=== PATIENT | female | born 1985 | race Caucasian/White ===

== ENCOUNTER → 2020-11-02 18:26 | Outpatient (CLI) | payer BC, SELFPAY ==
[2020-11-02 19:21] LABS: Lipase 152 U/L (23-300)
== END ==
PROVIDERS: Visit Provider Family Medicine
DX: R10.9 Unspecified abdominal pain (principal)
CPT/HCPCS: 83690

== ENCOUNTER → 2023-05-04 10:13 | Outpatient (CLI) | payer OTHER, SELFPAY ==
[2023-05-04 19:16] LABS: Basophils % 0.3 % (0.1-2.0); Eosinophils % 0.5 % (0.1-12.0); Hemoglobin 13.4 g/dL (12.2-16.2); Lymphocytes # 1.7 K/mm3 (0.7-4.5); Lymphocytes % 22.7 % (10-50); Mean Corpuscular HGB Conc 31.2 g/dL (31.8-35.4); Mean Corpuscular Hemoglobin 29.9 pg (27.0-31.2); Mean Corpuscular Volume 95.9 fl (81-99); Mean Platelet Volume 8.8 fl (7.4-10.4); Monocytes # 0.4 K/mm3 (0.1-1.0); Monocytes % 5.1 % (1.7-9.3); Neutrophils # 5.4 K/mm3 (1.8-7.8); Neutrophils % 71.4 % (37.0-80.0); Platelet Count 286 K/mm3 (142-424); Red Blood Count 4.48 M/mm3 (4.20-5.40); Red Cell Distribution Width 12.8 % (11.5-17.5); White Blood Count 7.6 K/mm3 (4.8-10.8)
[2023-05-04 19:24] LABS: Alanine Aminotransferase 16 U/L (12-78); Albumin Level 4.4 g/dl (3.5-5.0); Albumin/Globulin Ratio 1.6 (1.1-1.8); Alkaline Phosphatase 70 U/L (38-126); Anion Gap 13.4 mEq/L (5-15); Aspartate Amino Transferase 22 U/L (14-36); Bilirubin,Total 0.2 mg/dl (0.2-1.3); Blood Urea Nitrogen 11 mg/dl (7-17); Calcium 9.2 mg/dl (8.4-10.2); Carbon Dioxide 27 mmol/L (22.0-30.0); Chloride 105 mmol/L (98-107); Chol/HDL Ratio 4.9 (1-3.5); Cholesterol 187 mg/dl (140-200); Estimated Glomerular Filt Rate 93 ml/min (>60); GFR (African American) 113 ML/MIN (>60); Globulin 2.7 g/dL (1.3-3.2); Glucose 103 mg/dl (74-100); HDL Cholesterol 38 mg/dl (40-60); Potassium 4.4 mmoL/L (3.5-5.1); Sodium 141 mmol/L (136-145); Total Protein,Serum 7.1 g/dl (6.3-8.2); Triglycerides 139 mg/dl (30-150); VLDL Cholesterol 28 mg/dL (0-40)
[2023-05-04 21:43] LABS: Thyroid Stimulating Hormone 2.88 uIU/mL (0.465-4.68)
== END ==
LOC: LAB.DROPOF 05-05 07:06
PROVIDERS: PCP Family Medicine; Visit Provider Family Medicine
DX: T88.7XXA Unspecified adverse effect of drug or medicament, initial encounter
CPT/HCPCS: 80053; 80061; 84443; 85025

== ENCOUNTER → 2023-08-17 18:28 | Outpatient (CLI) | payer OTHER, SELFPAY ==
[2023-08-17 18:50] LABS: Basophils # 0.1 K/mm3 (0-0.2); Basophils % 0.6 % (0.1-2.0); Eosinophils # 0.1 K/mm3 (0.0-0.4); Eosinophils % 1.5 % (0.1-12.0); Hematocrit 39.7 % (37.0-47.0); Hemoglobin 12.7 g/dL (12.2-16.2); Lymphocytes % 27.4 % (10-50); Mean Corpuscular Hemoglobin 31.4 pg (27.0-31.2); Mean Corpuscular Volume 98.1 fl (81-99); Mean Platelet Volume 9.6 fl (7.4-10.4); Monocytes # 0.3 K/mm3 (0.1-1.0); Monocytes % 4.5 % (1.7-9.3); Neutrophils # 4.8 K/mm3 (1.8-7.8); Neutrophils % 65.8 % (37.0-80.0); Platelet Count 358 K/mm3 (142-424); Red Blood Count 4.05 M/mm3 (4.20-5.40); Red Cell Distribution Width 13.6 % (11.5-17.5); White Blood Count 7.3 K/mm3 (4.8-10.8)
[2023-08-17 19:08] LABS: Alanine Aminotransferase 16 U/L (12-78); Alkaline Phosphatase 51 U/L (38-126); Aspartate Amino Transferase 29 U/L (14-36); Bilirubin,Total 0.4 mg/dl (0.2-1.3); Blood Urea Nitrogen 11 mg/dl (7-17); Calcium 8.8 mg/dl (8.4-10.2); Carbon Dioxide 26 mmol/L (22.0-30.0); Chloride 103 mmol/L (98-107); Chol/HDL Ratio 5.5 (1-3.5); Cholesterol 192 mg/dl (140-200); Estimated Glomerular Filt Rate 80 ml/min (>60); GFR (African American) 97 ML/MIN (>60); Glucose 97 mg/dl (74-100); HDL Cholesterol 35 mg/dl (40-60); Triglycerides 157 mg/dl (30-150); VLDL Cholesterol 31 mg/dL (0-40)
[2023-08-17 19:10] LABS: Albumin Level 4.4 g/dl (3.5-5.0); Albumin/Globulin Ratio 1.7 (1.1-1.8); Anion Gap 11.8 mEq/L (5-15); Globulin 2.6 g/dL (1.3-3.2); Potassium 3.8 mmoL/L (3.5-5.1); Sodium 137 mmol/L (136-145)
[2023-08-17 19:20] LABS: Direct LDL Cholesterol 119.47 mg/dL (100-129)
[2023-08-17 19:25] LABS: Free T4 (Free Thyroxine) 0.78 ng/dl (0.78-2.19)
[2023-08-17 19:39] LABS: Thyroid Stimulating Hormone 2.07 uIU/mL (0.465-4.68)
[2023-08-20 00:09] LABS: Lithium (Eskalith(R)) 0.1 mmol/L (0.5-1.2)
== END ==
LOC: LAB.DROPOF 18:30
PROVIDERS: PCP Nurse Practitioner Acute Care; Visit Provider Nurse Practitioner Acute Care
DX: F31.81 Bipolar II disorder (principal); F41.0 Panic disorder [episodic paroxysmal anxiety]; F41.1 Generalized anxiety disorder
CPT/HCPCS: 80053; 80061; 80178; 83036; 84439; 84443; 85025

== ENCOUNTER 2023-11-09 20:04 | Outpatient (CLI) | payer OTHER, SELFPAY ==
[2023-11-09 19:11] LABS: Alanine Aminotransferase 18 U/L (12-78); Albumin Level 4.5 g/dl (3.5-5.0); Albumin/Globulin Ratio 1.9 (1.1-1.8); Alkaline Phosphatase 60 U/L (38-126); Anion Gap 10.8 mEq/L (5-15); Aspartate Amino Transferase 21 U/L (14-36); Bilirubin,Total 0.3 mg/dl (0.2-1.3); Blood Urea Nitrogen 14 mg/dl (7-17); Calcium 9.5 mg/dl (8.4-10.2); Carbon Dioxide 26 mmol/L (22.0-30.0); Chloride 107 mmol/L (98-107); Estimated Glomerular Filt Rate 55 ml/min (>60); GFR (African American) 67 ML/MIN (>60); Globulin 2.4 g/dL (1.3-3.2); Glucose 111 mg/dl (74-100); Potassium 3.8 mmoL/L (3.5-5.1); Sodium 140 mmol/L (136-145); Total Protein,Serum 6.9 g/dl (6.3-8.2)
[2023-11-09 19:27] LABS: Free T4 (Free Thyroxine) 0.85 ng/dl (0.78-2.19)
[2023-11-09 19:43] LABS: Thyroid Stimulating Hormone 4.33 uIU/mL (0.465-4.68)
[2023-11-11 05:21] LABS: Lithium (Eskalith(R)) 0.4 mmol/L (0.5-1.2)
== END 2023-11-09 23:59 ==
LOC: LAB.DROPOF 20:04
PROVIDERS: PCP Nurse Practitioner Acute Care; Visit Provider Nurse Practitioner Acute Care
DX: F31.81 Bipolar II disorder (principal)
CPT/HCPCS: 80053; 80178; 84439; 84443

== ENCOUNTER 2024-12-13 12:50 | Outpatient (CLI) | payer OTHER, SELFPAY ==
[2024-12-13 18:51] LABS: Basophils # 0.1 K/mm3 (0-0.2); Basophils % 0.6 % (0.1-2.0); Eosinophils # 0.1 K/mm3 (0.0-0.4); Eosinophils % 1.5 % (0.1-12.0); Hematocrit 39.3 % (37.0-47.0); Hemoglobin 12.4 g/dL (12.2-16.2); Lymphocytes # 2.4 K/mm3 (0.7-4.5); Lymphocytes % 24.7 % (10-50); Mean Corpuscular HGB Conc 31.6 g/dL (31.8-35.4); Mean Corpuscular Hemoglobin 31.2 pg (27.0-31.2); Mean Platelet Volume 10.2 fl (7.4-10.4); Monocytes # 0.6 K/mm3 (0.1-1.0); Monocytes % 6.1 % (1.7-9.3); Neutrophils # 6.4 K/mm3 (1.8-7.8); Neutrophils % 66.7 % (37.0-80.0); Platelet Count 317 K/mm3 (142-424); Red Blood Count 3.97 M/mm3 (4.20-5.40); Red Cell Distribution Width 12.8 % (11.5-17.5); White Blood Count 9.6 K/mm3 (4.8-10.8)
[2024-12-13 19:39] LABS: Alanine Aminotransferase 12 U/L (12-78); Albumin Level 4.5 g/dl (3.5-5.0); Albumin/Globulin Ratio 2.1 (1.1-1.8); Alkaline Phosphatase 45 U/L (38-126); Anion Gap 10.1 mEq/L (5-15); Aspartate Amino Transferase 19 U/L (14-36); Bilirubin,Total 0.5 mg/dl (0.2-1.3); Blood Urea Nitrogen 7 mg/dl (7-17); Calcium 10.7 mg/dl (8.4-10.2); Carbon Dioxide 29 mmol/L (22.0-30.0); Chloride 103 mmol/L (98-107); Estimated Glomerular Filt Rate 69 ml/min (>60); GFR (African American) 83 ML/MIN (>60); Globulin 2.1 g/dL (1.3-3.2); Glucose 111 mg/dl (74-100); Potassium 4.1 mmoL/L (3.5-5.1); Sodium 138 mmol/L (136-145); Total Protein,Serum 6.6 g/dl (6.3-8.2)
[2024-12-13 20:07] LABS: Thyroid Stimulating Hormone 3.29 uIU/mL (0.465-4.68)
[2024-12-13 20:26] LABS: Vitamin B12 287 pg/mL (239-931)
[2024-12-14] LABS: Hemoglobin A1C 4.9 % (4.0-6.0)
== END 2024-12-13 23:59 | disposition home or self-care (01) ==
LOC: LAB.DROPOF 12-14 13:21
PROVIDERS: PCP Nurse Practitioner; Visit Provider Nurse Practitioner
DX: R55 Syncope and collapse (principal); R42 Dizziness and giddiness
CPT/HCPCS: 80053; 82607; 83036; 84443; 85025; 87086

== ENCOUNTER 2025-05-08 11:52 | Outpatient (CLI) | payer OTHER, SELFPAY ==
--- OUTSIDE RECORDS SUMMARY | 2025-04-19 13:53 | XMS_ITS | Encounter Summary ---
Author Organization [facility] [address] Care Team Providers Care Pharmacy Affairs Assistant Name Role Phone Colt Man MD Primary Care Provider [phone] Reason for Visit * Reason Comments Emesis Loss of Consciousness States vomiting ye sterday today passed out in shower Encounter Details Date Type Department Care Team (Late st Contact Info) Description 04/19/2025 1:53 PM EDT - 04/19/2025 4:41 [place] [address] Gen Bland MD [address] [place] [id number] Syncope and collapse (Primary Dx); Nausea and vomiting, unspecified vomiting type; Nonintractable headache, unspecified chronicity pattern, unspecified headache type; Pericardial cyst; Lung granuloma (HCC); Periumbilical hernia Discharge Disposition: Home or Self Care Social History Tobacco Use Types Packs/Day Years Used Date Smoking Tobacco: Former Cigarettes 1 10 Passive Smoke Exposure: Past Smokeless Tobacco: Never Comments:Quit smoking 12/2021 Alcohol Use Standard Drinks/Week Comments Not Currently 0 (1 standard drink = 0.6 oz pur e alcohol) Sexually Active Control Partners Comments Yes Male Comments No Sex and Gender Information Value Date Recorded Sex Assigned at Not on file Legal Sex Female 9:02 PM EDT Gender Identity Not on file Sexual Orientation Not on file documented as of this encounter Last Filed Vital Signs Vital Sign Reading Time Taken Comments Blood Pressure 93/48 04/19/2025 4:30 PM EDT Pulse 83 04/19/2025 4:30 PM EDT Temperature 36.7 C (98.1 F) 04/19/2025 12:51 PM EDT Respiratory Rate 20 04/19/2025 4:30 PM EDT Oxygen Saturation 100% 04/19/2025 3:30 PM EDT Inhaled Oxygen Concentration - - Weight 65.9 kg (145 lb 4.8 oz) 04/19/2025 12:51 PM EDT Height - - Body Mass Index 23.45 12/10/2024 9:21 PM EDT documented in this encounter Functional Status * Suicide Severity Rating Answer Date of Assessment Author No Risk 04/19/2025 12:53 PM EDT Jose Naik RN * Drifting Suicide Severity Rating Scale (Q shift for moderate and high) Question Answer Date of Assessment Author 1. In the past month, have you wished you were or wished you could go to sleep and not wake up? 0 04/19/2025 12:53 PM EDT Lj Welch RN 2. In the past month, have you actually had any thoughts of killing yourself? (If no, skip to question 6) 0 04/19/2025 12:53 PM EDT Lj Welch RN 6. Have you ever done anything, started to do anything, or prepared to do anything to end your life? 0 04/19/2025 12:[address], RN documented as of this encounter Discharge Instructions * Discharge Instructions* Gen Bland MD - 04/19/2025 4:01 PM EDT Take the Reglan as needed for nausea and vomiting. Advance diet as tolerated. Follow-up with cardiology and your family doctor. Return if worse. * Attachments The following attachments cannot be sent through Care Everywhere. * Syncope (fainting) ??? Discharge instructions (Chinese) * Nausea and vomiting in adults (Chinese) documented in this encounter Medications at Time of Discharge aspirin/acetamin ophen/caffeine (EXCEDRIN EXTRA STRENGTH ORAL) Take by mouth as needed for Other. CAPLYTA 42 mg Oral Capsule Take 1 Capsule by mouth daily. 11/26/2024 cetirizine (ZYRTEC) 10 mg Oral Tablet Take 10 mg by mouth daily as needed for Allergies. Alternates with loratadine dimenhyDRINATE (DRAMAMINE) 50 mg tabletIndication s:nausea Take 50 mg by mouth as needed for Breakthrough Nausea/Vomiting. Indications: nausea escitalopram oxalate (LEXAPRO) 5 mg Oral Tablet 01/13/2024 ibuprofen (ADVIL;MOTRIN) 800 mg Oral Tablet Take 1 Tablet by mouth every 6 hours as needed. 30 Tablet 03/16/2024 9:38 AM EDT 03/16/2024 lamoTRIgine (LAMICTAL) 150 mg Oral Tablet Take 150 mg by mouth daily. lithium 300 mg Oral Capsule Take 300 mg by mouth daily. metoclopramide HCl (REGLAN) 10 mg Oral Tablet Take 1 Tablet by mouth every 8 hours as needed for Nausea for up to 30 days. 20 Tablet 04/19/2025 4:31 PM EDT 04/19/2025 WEGOVY 1 mg/0.5 mL SubQ Pen Injector Subcutaneous (Inject under the skin) 1 mg once a week. saturdays11/09/2023 documented as of this encounter Ordered Prescriptions Prescription Sig Dispense Quantity Refills Last Filled Start Date End Date metoclopramide HCl (REGLAN) 10 mg Oral Tablet Take 1 Tablet by mouth every 8 hours as needed for Nausea for up to 30 days. 20 Tablet 04/19/2025 4:31 PM EDT 04/19/2025 05/19/2025 documented in this encounter Discharge Disposition Disposition Code Departure Means Destination Comment s Home or Self Usp documented in this encounter Progress Notes * Brittany Jackson CPhT - 04/19/2025 4:40 PM EDT Discharge Medication Delivery Service [employer]MD integration technician has delivered the following medications for Jim Rowley: Rx#[id number]:METOCLOPRAMIDE 10 MG TABLET-10 mg EVERY 8 HOURS PRN Date/Time of Delivery: 04/19/2025 4:40 PM Delivered to: the patient in bed 25. Please contact [employer]MD integration technician with any questions. Thanks! Brittany Jackson CPhT documented in this encounter ED Notes * Gen Bland MD - 04/19/2025 12:38 PM EDT Chief Complaint Patient presents with Emesis Loss of Consciousness States vomiting yesterday today passed out in shower Patient is a 39-year-old female with a history of gallbladder disease, umbilical hernia, stress urinary incontinence, uterine ablation, presents here with vomiting and syncope. Patient tells me she has felt lightheaded. On further discussion she denies any vertigo. Her main complaint is that of just some intermittent headaches and feeling weird in her head she tells me mostly frontal headache. Tells me she has had several syncopal episodes over the last 24 hours where as her vision gets narrow and she passes out denies head injury. Denies neck pain. Tells me she is continue to be nauseated. Vomited yesterday. Nausea today with minimal oral intake. She also has complaints of chest soreness. She denies chest pressure she denies pleuritic pain but is tells me her chest feels sore. Some abdominal tenderness at times with the nausea and vomiting. History provided by: Patient and medical records change management lead used: No Emesis Severity: Moderate Duration: 24 hours Timing: Intermittent Quality: Undigested food Associated symptoms: headaches Associated symptoms: no abdominal pain, no chills, no cough, no diarrhea and no fever Loss of Consciousness Associated symptoms: chest pain, headaches, nausea and vomiting Associated symptoms: no fever, no palpitations and no shortness of breath Patient History Allergies Allergen Reactions Phenergan [Promethazine] Nausea And Vomiting Zofran [Ondansetron Hcl] Nausea And Vomiting Vicodin [Hydrocodone-Acetaminophen] Nausea And Vomiting Home Medications: Prior to Admission medications Medication Sig Start Date End Date Last Dose Authorizing Provider aspirin/acetaminophen/caffeine (EXCEDRIN EXTRA STRENGTH ORAL) Take by mouth as needed for Other. Provider, Historical CAPLYTA 42 mg Oral Capsule Take 1 Capsule by mouth daily. 11/26/24 Provider, Historical cetirizine (ZYRTEC) 10 mg Oral Tablet Take 10 mg by mouth daily as needed for Allergies. Alternateswith loratadine Provider, Historical dimenhyDRINATE (DRAMAMINE) 50 mg tablet Take 50 mg by mouth as needed for Breakthrough Nausea/Vomiting. Indications: nausea Provider, Historical escitalopram oxalate (LEXAPRO) 5 mg Oral Tablet 01/13/24 Provider, Historical ibuprofen (ADVIL;MOTRIN) 800 mg Oral Tablet Take 1 Tablet by mouth every 6 hours as needed. 03/16/24Ave Díaz MD lamoTRIgine (LAMICTAL) 150 mg Oral Tablet Take 150 mg by mouth daily. Provider, Historical lithium 300 mg Oral Capsule Take 300 mg by mouth daily. Provider, Historical WEGOVY 1 mg/0.5 mL SubQ Pen Injector Subcutaneous (Inject under the skin) 1 mg once a week. saturdays11/09/23 Provider, Historical Past Medical History: Past Medical History: Diagnosis Date Depression Gallbladder disease Nausea Other disorders of kidney and ureter has had urethra stretched Post-operative nausea and vomiting unsure if anesthesia, but for sure with pain meds- uses scop patch Umbilical hernia 07/23/2012 Urinary incontinence costa Wears glasses Social History: reports that she has quit smoking. Her smoking use included cigarettes. She has a 10 pack-year smoking history. She has been exposed to tobacco smoke. She has never used smokeless tobacco. She reports that she does not currently use alcohol. She reports being sexually active and hashad partner(s) who are male. She reports that she does not use drugs. E-Cigarettes (such as Vapes or Juul) E-Cigarette Use Never User Family History: Family History Problem Relation Age of Onset No Known Problems Mother No Known Problems Father No Known Problems Sister No Known Problems Brother No Known Problems Maternal Aunt No Known Problems Maternal Uncle No Known Problems Paternal Aunt No Known Problems Paternal Uncle No Known Problems Maternal Grandmother No Known Problems Maternal Grandfather No Known Problems Paternal Grandmother No Known Problems Paternal Grandfather No Known Problems Other Anesth Problems Neg Hx Rheum Arthritis Neg Hx Osteoarthritis Neg Hx Asthma Neg Hx Breast Cancer Neg Hx Cancer Neg Hx Diabetes Neg Hx Heart Failure Neg Hx High Cholesterol Neg Hx Hypertension Neg Hx Migraines Neg Hx Ovarian Cancer Neg Hx Rashes/Skin Problems Neg Hx Seizures Neg Hx Stroke Neg Hx Thyroid Disease Neg Hx Sickle Cell Anemia Neg Hx Heart Defect Neg Hx Down Syndrome Neg Hx Mental Retardation Neg Hx Clotting Disorder Neg Hx Bleeding Prob Neg Hx Cystic Fibrosis Neg Hx Chorea Neg Hx PKU Neg Hx Defects Neg Hx Surgical History: Past Surgical History: Procedure Laterality Date BLADDER SURGERY 2006 urethra stretched CHOLECYSTECTOMY 02/06/2012 DAVINCI ROBOTIC LAPAROSCOPIC CHOLECYSTECTOMY , UMBILICAL HERNIA REPAIR; Surgeon: Leonides Youssef MD; Location: [facility]; Service: Thoracic ENDOMETRIAL ABLATION N/A 03/16/2024 ENDOMETRIAL ABLATION WITH NOVASURE DILATION AND CURETTAGE, HYSTEROSCOPY; Surgeon: Ave Díaz MD; Location: [facility]; Service: Gynecology UMBILICAL HERNIA REPAIR 02/06/2012 Surgeon: Leonides Youssef MD; Location: [facility]; Service: Thoracic UMBILICAL HERNIA REPAIR 08/06/2012 UMBILICAL HERNIA REPAIR ; Surgeon: Leonides Youssef MD; Location: [facility]; Service: Thoracic UMBILICAL HERNIA REPAIR N/A 12/13/2020 Excision of stitch granuloma and scar tissue.; Surgeon: Lin Patterson MD; Location: [facility];Service: General VENTRAL HERNIA REPAIR N/A 01/10/2020 Open repair incisional hernia with Mesh ; Surgeon: Leonides Youssef MD; Location: [facility]; Service: General Review of Systems Review of Systems Constitutional: Negative for chills and fever. HENT: Negative. Eyes: Negative. Respiratory: Negative for cough and shortness of breath. Cardiovascular: Positive for chest pain and syncope. Negative for palpitations and leg swelling. Gastrointestinal: Positive for nausea and vomiting. Negative for abdominal pain and diarrhea. Genitourinary: Negative for dysuria and frequency. Musculoskeletal: Negative. Skin: Negative for rash. Neurological: Positive for syncope, light-headedness and headaches. Psychiatric/Behavioral: Negative. All other systems reviewed and are negative. Physical Exam Blood pressure 101/50, pulse 81, temperature 98.1 ??F (36.7 ??C), temperature source Oral, resp. rate 13, weight 145 lb 4.8 oz (65.9 kg), SpO2 100%, not currently . Physical Exam Vitals and nursing note reviewed. Constitutional: General: She is not in acute distress. Appearance: She is well-developed. Eyes: Conjunctiva/sclera: Conjunctivae normal. Pupils: Pupils are equal, round, and reactive to light. Cardiovascular: Rate and Rhythm: Normal rate and regular rhythm. Heart sounds: No murmur heard. No friction rub. No gallop. Pulmonary: Effort: Pulmonary effort is normal. Breath sounds: Normal breath sounds. Abdominal: General: Bowel sounds are normal. There is no distension. Palpations: Abdomen is soft. Tenderness: There is abdominal tenderness. Comments: Minimal epigastric tenderness. Musculoskeletal: Cervical back: Normal range of motion and neck supple. Lymphadenopathy: Cervical: No cervical adenopathy. Skin: General: Skin is warm and dry. Findings: No rash. Neurological: Mental Status: She is alert and oriented to person, place, and time. Comments: Patient is alert oriented x 4. Grossly moving all extremities. No pronator drift. Patientwas laid flat and sat up in a modified Hallpike maneuver. No nystagmus no vertigo. Just describes afrontal headache. Procedures Radiology/EKG/Labs: EKG Interpretation Interpreted by me Rhythm: normal sinus Rate: normal [place]: normal Ectopy: none Conduction: normal ST Segments: no acute change T Waves: no acute change Q Waves: none Clinical Impression: no acute changes and normal SCANNED EKG Final Result CT ANGIOGRAM CHEST ABDOMEN PELVIS W CONTRAST Final Result 1. No acute abnormality including aortic dissection. 2. Right anterior cardiophrenic 5 cm probable pericardial cyst. 3. Small volume pelvic free fluid. - CT HEAD WO CONTRAST Final Result No acute intracranial abnormality. - Note: Radiology results need to be interpreted within a comprehensive clinical context. If you have questions about the radiology report, please contact the office of the ordering clinician. CT ANGIOGRAM HEAD AND NECK W CONTRAST Final Result No large vessel occlusion, dissection, or aneurysm identified. - Note: Radiology results need to be interpreted within a comprehensive clinical context. If you have questions about the radiology report, please contact the office of the ordering clinician. NASCET criteria used for estimates of stenosis. EK EKG [address] [facility] Test Date: 2025-04-19 Pat Name: JIM ROWLEY Department: [facility] Room: Gender: Female Doorperson: Jesus : 1985 Requested By: [facility] Order Number: [id number] Reading MD: Janice Llanes MD Measurements Intervals [place] Rate: 71 P: 56 [place]: 198 QRS: 52 QRSD: 92 T: 55 QT: 374 QTc: 407 Interpretive Statements SINUS RHYTHM Electronically Signed On 04-19-2025 15:51:50 EDT by Janice Llanes MD Labs Reviewed URINALYSIS REFLEX - Abnormal Result Value UA Color Light Yellow UA Appear Clear UA Glucose Negative UA Ketones Negative UA Blood Negative UA pH 6.0 UA Protein Negative UA Urobilinogen Normal UA Bili Negative UA Nitrite Negative UA Leuk Est 1+ (25 Rolando/mcl) (*) UA Spec Grav 1.024 UA WBC 4 UA RBC <1 UA Squam Epi 4+ UA Mucus Trace UA Bacteria Trace (*) BASIC METABOLIC PANEL - Normal Sodium 138 Potassium 3.8 Chloride 101 Total CO2 26 Anion Gap 11 Calcium 10.0 Glucose Lvl 95 BUN 14 Creatinine 1.09 eGFR (CKD-EPIcr 2020) 65 HEPATIC FUNCTION PANEL - Normal Total Protein 6.9 Albumin 4.2 Bili Direct <0.2 Bili Total 0.5 AST 12 ALT <5 Alk Phos 54 LIPASE LEVEL - Normal Lipase Lvl 56 TROPONIN-T HIGH SENSITIVITY BASELINE W/ REFLEX - Normal [id number] <6 Narrative: Ingestion of greg doses of biotin (>5 mg/day) taken within 8 hours of drawing blood sample can interfere with this immunoassay test. LACTIC ACID - Normal Lactic Acid 0.7 HUMAN CHORIONIC GONADOTROPIN QUANTITATIVE - Normal Hcg Quant <1 Narrative: Female (non-): 0-4.9 mIU/mL Female (postmenopausal): 0-8.1 mIU/mL Indeterminate values for (e.g., 5-25 mIU/mL) may be confirmed with a repeat test in 48-72hours. Values in should double every 2-3 days for the first six weeks. Ingestion of greg doses of biotin (>5 mg/day) taken within 8 hours of drawing blood sample can interfere with this immunoassay test. CBC WITH DIFF WBC 8.0 RBC 3.96 Hgb 12.1 Hct 37.5 MCV 94.7 MCH 30.6 MCHC 32.3 RDW 12.4 Platelet 262 MPV 9.2 Neut Percent 62.8 Imm Gran% 0.3 Lymph Percent 29.4 Steele Percent 5.8 Eos Percent 1.4 Baso Percent 0.3 Neut # 5.0 IMMGRAN# 0.0 Lymph # 2.3 Steele # 0.5 Eos# 0.1 Baso # 0.0 UA W/REFLEX TO CULTURE Narrative: The following orders were created for panel order UA W/REFLEX TO CULTURE. Procedure Abnormality Status --------- ------ URINALYSIS REFLEX[[id number]] Abnormal Final result EXTRA REYES URINE CX[[id number]] Final result Please view results for these tests on the individual orders. ED Course: Appropriate laboratory and radiology studies reviewed Patient presents with multiple issues. She has complaints of feeling strange in her head but deniesany vertigo. Describes a frontal headache. Workup is unremarkable. Did give her a liter of IV fluids Reglan Benadryl. On recheck seems to be improved. No obvious neurological deficits. CT angiogram head and neck no evidence of occlusion. Patient also had complaints of chest pain. Nausea vomiting. CT angiogram chest abdomen pelvis unremarkable except for incidental findings of a pericardial cyst. I did message cardiology on-call. At this point patient will be discharged home. I do not feel she has acute coronary syndrome. As far as her pericardial cyst is small. Cardiology agreeable to following up on the patient and discussing further need for 2D echo. Patient discharged home on Reglan for nausea concerning her multiple allergies. She is agreeable to this plan. Patient also had several incidental findings such as a lung granuloma and a periumbilical hernia. No evidence of bowel obstruction she is updated. 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 Radiology: ordered. Risk Prescription drug management. Condition at Discharge/Transfer from Department: Stable This chart was completed using voice recognition technology and may contain unintended errors Gen Bland MD 04/21/25 [id number] documented in this encounter Plan of Treatment Not on file documented as of this encounter Procedures Procedure Name Priority Date/Time Associated Diagnosis Comments SCANNED EKG 04/20/2025 12:[address] ANGIOGRAM CHEST ABDOMEN PELVIS W CONTRAST STAT 04/19/2025 3:[address] ANGIOGRAM HEAD AND NECK W CONTRAST STAT 04/19/2025 2:[address] HEAD WO CONTRAST STAT 04/19/2025 2 :58 PM EDT TROPONIN-T HIGH SENSITIVITY BASELINE W/ REFLEX STAT 04/19/2025 2:15 PM EDT CBC WITH DIFF STAT 04/19/2025 2:15 PM EDT HUMAN CHORIONIC GONADOTROPIN QUANTITATIVE STAT 04/19/2025 2:15 PM EDT LIPASE LEVEL STAT 04/19/2025 2:15 PM EDT LACTIC ACID STAT 04/19/2025 2:15 PM EDT HEPATIC FUNCTION PANEL STAT 04/19/2025 2:15 PM EDT BASIC METABOLIC PANEL STAT 04/19/2025 2:15 PM EDT URINALYSIS REFLEX STAT 04/19/2025 2:1 4 PM EDT UA W/REFLEX TO CULTURE STAT 04/19/2025 2:14 PM EDT EXTRA REYES URINE CX STAT 04/19/2025 2 :14 PM EDT URINE CULTURE (NO STAIN) STAT 04/19/2025 2:14 PM EDT EK EKG 12 LEAD STAT 04/19/2025 12:40 PM EDT documented in this encounter Results * SCANNED EKG (04/20/2025 12:22 PM EDT) Anatomical Region Laterality Modality Other 04/20/2025 12:2 2 PM EDT us Unknown Provider IMG ECG ORDERABLES Final Result * CT ANGIOGRAM CHEST ABDOMEN PELVIS W CONTRAST (04/19/2025 3:02 PM EDT) Anatomical Region Laterality Modality Abdomen, Pelvis, Chest Computed Tomography 04/19/2025 3:02 PM EDT Impressions 04/19/2025 3:30 PM EDT 1. No acute abnormality including aortic dissection. 2. Right anterior cardiophrenic 5 cm probable pericardial cyst. 3. Small volume pelvic free fluid. - Narrative 04/19/2025 3:[address] ANGIOGRAM CHEST ABDOMEN PELVIS W CONTRAST 04/19/2025 3:02 PM CLINICAL HISTORY: -Chest Pain -Chest pain syncope. COMPARISON: None. PROCEDURE COMMENTS: Multidetector CT angiography of the region of interest. Isovue 370 IV contrast given as recorded in EPIC. Multiplanar reconstructions generated and reviewed, including 3D MIPS. Dose 1 : CT DLP Total : 2779.75 mGycm DLP Spiral Max : 1311.83 mGycm Maximum CTDI Vol : 54.2 mGy FINDINGS: Chest CT: Postcontrast CTA demonstrates normal thoracic aortic caliber without dissection. The main pulmonary arteries are patent. Normal heart size. No coronary arterial calcifications or pericardial effusion. Mediastinum and gibson are notable for right anterior cardiophrenic 5 cm probable pericardial cyst. Peripheral left upper lobe calcified granulomas. Minimal bibasilar dependent subsegmental atelectasis. No pleural effusion or pneumothorax. Normal chest wall. Grossly intact rib cage. Abdomen and pelvis CT: Normal abdominal aortic caliber without dissection. Patent visceral branches of the abdominal aorta. Grossly unremarkable liver, spleen, gallbladder, pancreas, adrenals, and kidneys except for small splenic hemangioma. The visualized bowel within normal limits. Small volume pelvic free fluid. No mass or adenopathy. The visualized bones are grossly intact. Small periumbilical hernia. Procedure Note Jason Toledo MD - 04/19/2025 CT ANGIOGRAM CHEST ABDOMEN PELVIS W CONTRAST 04/19/2025 3:02 PM CLINICAL HISTORY: -Chest Pain -Chest pain syncope. COMPARISON: None. PROCEDURE COMMENTS: Multidetector CT angiography of the region ofinterest. Isovue 370 IV contrast given as recorded in EPIC. Multiplanarreconstructions generated and reviewed, including 3D MIPS. Dose 1 : CT DLP Total : 2779.75 mGycm DLP Spiral Max : 1311.83 mGycm Maximum CTDI Vol : 54.2 mGy FINDINGS: Chest CT: Postcontrast CTA demonstrates normal thoracic aortic caliber withoutdissection. The main pulmonary arteries are patent. Normal heart size. No coronaryarterial calcifications or pericardial effusion. Mediastinum and gibson are notable for right anterior cardiophrenic 5 cmprobable pericardial cyst. Peripheral left upper lobe calcified granulomas. Minimal bibasilardependent subsegmental atelectasis. No pleural effusion or pneumothorax. Normal chest wall. Grossly intact rib cage. Abdomen and pelvis CT: Normal abdominal aortic caliber without dissection. Patent visceralbranches of the abdominal aorta. Grossly unremarkable liver, spleen, gallbladder, pancreas, adrenals, andkidneys except for small splenic hemangioma. The visualized bowel within normal limits. Small volume pelvic free fluid. No mass or adenopathy. The visualized bones are grossly intact. Small periumbilical hernia. IMPRESSION: 1. No acute abnormality including aortic dissection. 2. Right anterior cardiophrenic 5 cm probable pericardial cyst. 3. Small volume pelvic free fluid. - Gne Bland MD IMG CT ORDERABLES Final Result * CT ANGIOGRAM HEAD AND NECK W CONTRAST (04/19/2025 2:58 PM EDT) Anatomical Region Laterality Modality Head Computed Tomogra phy 04/19/2025 2:58 PM EDT Impressions 04/19/2025 3:11 PM EDT No large vessel occlusion, dissection, or aneurysm identified. - Note: Radiology results need to be interpreted within a comprehensive clinical context. If you have questions about the radiology report, please contact the office of the ordering clinician. NASCET criteria used for estimates of stenosis. Narrative 04/19/2025 3:11 PM EDT CTA HEAD AND NECK WITH CONTRAST, 04/19/2025 2:58 PM CLINICAL HISTORY: -Frontal headache near syncope questionable vertigo. COMPARISON: None. PROCEDURE COMMENTS: Isovue 370 IV contrast given as recorded in EPIC. Subsequently, multi-detector helical scanning was performed through the head and neck and multiplanar reconstructions generated per protocol. Review included 3D MIP reconstructions. Dose 1 : CT DLP Total : 2779.75 mGycm DLP Spiral Max : 1311.83 mGycm Maximum CTDI Vol : 54.2 mGy FINDINGS: CTA NECK: ARCH: Visible aortic arch patent shows no gross aneurysm or dissection. RIGHT CAROTID SYSTEM: Common carotid artery and cervical segments of the internal carotid artery are patent without evidence of flow-limiting stenosis or dissection. LEFT CAROTID SYSTEM: Common carotid artery and cervical segments of the internal carotid artery are patent without evidence of flow-limiting stenosis or dissection. VERTEBRAL ARTERIES: Vertebral arteries are grossly patent without flow-limiting stenosis or dissection. CTA HEAD: No occlusion or flow limiting stenosis of the central intracranial circulation. No aneurysm. OTHER: Visualized lung apices are clear. No neck mass or suspicious lymph nodes. Visible skeleton intact. Procedure Note Robe Macdonald MD - 04/19/2025 CTA HEAD AND NECK WITH CONTRAST, 04/19/2025 2:58 PM CLINICAL HISTORY: -Frontal headache near syncope questionable vertigo. COMPARISON: None. PROCEDURE COMMENTS: Isovue 370 IV contrast given as recorded in EPIC. Subsequently, multi-detector helical scanning was performed through thehead and neck and multiplanar reconstructions generated per protocol. Review included 3D MIP reconstructions. Dose 1 : CT DLP Total : 2779.75 mGycm DLP Spiral Max : 1311.83 mGycm Maximum CTDI Vol : 54.2 mGy FINDINGS: CTA NECK: ARCH: Visible aortic arch patent shows no gross aneurysm or dissection. RIGHT CAROTID SYSTEM: Common carotid artery and cervical segments of the internal carotid artery are patent without evidence of flow-limitingstenosis or dissection. LEFT CAROTID SYSTEM: Common carotid artery and cervical segments of theinternal carotid artery are patent without evidence of flow-limiting stenosis or dissection. VERTEBRAL ARTERIES: Vertebral arteries are grossly patent withoutflow-limiting stenosis or dissection. CTA HEAD: No occlusion or flow limiting stenosis of the centralintracranial circulation. No aneurysm. OTHER: Visualized lung apices are clear. No neck mass or suspicious lymphnodes. Visible skeleton intact. IMPRESSION: No large vessel occlusion, dissection, or aneurysm identified. - Note: Radiology results need to be interpreted within a comprehensiveclinical context. If you have questions about the radiology report, please contactthe office of the ordering clinician. NASCET criteria used for estimates of stenosis. Gen Bland MD [facility] [place] ORDERABLES Final Result * CT HEAD WO CONTRAST (04/19/2025 2:58 PM EDT) Anatomical Region Laterality Modality Head Computed Tomogra phy 04/19/2025 2:58 PM EDT Impressions 04/19/2025 3:21 PM EDT No acute intracranial abnormality. - Note: Radiology results need to be interpreted within a comprehensive clinical context. If you have questions about the radiology report, please contact the office of the ordering clinician. Narrative 04/19/2025 3:[address] HEAD WO CONTRAST 04/19/2025 2:58 PM CLINICAL HISTORY: -Frontal headache with syncope. COMPARISON: None. PROCEDURE COMMENTS: Routine noncontrast head CT with multiplanar reconstructions. Dose 1 : CT DLP Total : 2779.75 mGycm DLP Spiral Max : 1311.83 mGycm Maximum CTDI Vol : 54.2 mGy FINDINGS: Ventricular size and configuration normal. No evidence of acute stroke, mass, or hemorrhage. No evidence of fracture or extra-axial collection. Included paranasal sinuses, mastoids, and orbits unremarkable. Procedure Note Jason Toledo MD - 04/19/2025 CT HEAD WO CONTRAST 04/19/2025 2:58 PM CLINICAL HISTORY: -Frontal headache with syncope. COMPARISON: None. PROCEDURE COMMENTS: Routine noncontrast head CT with multiplanar reconstructions. Dose 1 : CT DLP Total : 2779.75 mGycm DLP Spiral Max : 1311.83 mGycm Maximum CTDI Vol : 54.2 mGy FINDINGS: Ventricular size and configuration normal. No evidence of acute stroke,mass, or hemorrhage. No evidence of fracture or extra-axial collection. Included paranasal sinuses, mastoids, and orbits unremarkable. IMPRESSION: No acute intracranial abnormality. - Note: Radiology results need to be interpreted within a comprehensiveclinical context. If you have questions about the radiology report, please contactthe office of the ordering clinician. us Gen Bland MD IMG CT ORDERABLES Final Result * HUMAN CHORIONIC GONADOTROPIN QUANTITATIVE (04/19/2025 2:15 PM EDT) Hcg Quant <1 <5 mIU/mL 04/19/2025 2:40 PM EDT [facility] Blood VENOUS BLOOD / Unknown Venipuncture / Unknown 04/19/2025 2:15 PM EDT 04/19/2025 2:18 PM EDT Narrative [facility] - 04/19/2025 2:40 PM EDT Female (non-): 0-4.9 mIU/mL Female (postmenopausal): 0-8.1 mIU/mL Indeterminate values for (e.g., 5-25 mIU/mL) may be confirmed with a repeat test in 48-72 hours. Values in should double every 2-3 days for the first six weeks. Ingestion of greg doses of biotin (>5 mg/day) taken within 8 hours of drawing blood sample can interfere with this immunoassay test. us Gen Bland MD CHEMISTRY ORDERABLES Final Resu lt Performing Organization Address [facility]/ZIP Co de Phone Number [address] [phone] * LACTIC ACID (04/19/2025 2:15 PM EDT) Pathologist [facility] Lactic Acid 0.7 0.5 - 1.9 mmol/L 04/19/2025 2:32 PM EDT [facility] Blood VENOUS BLOOD / Unknown Venipuncture / Unknown 04/19/2025 2:15 PM EDT 04/19/2025 2:18 PM EDT us Gen Bland MD CHEMISTRY ORDERABLES Final Resu lt Performing Organization Address City/[facility]/ZIP Co de Phone Number [facility] [address] [place] [address] * TROPONIN-T HIGH SENSITIVITY BASELINE W/ REFLEX (04/19/2025 2:15 PM EDT) [facility] sg-lLsehlqfq-P <6 <14 ng/L 04/19/2025 2:39 PM EDT [facility] Blood VENOUS BLOOD / Unknown Venipuncture / Unknown 04/19/2025 2:15 PM EDT 04/19/2025 2:18 PM EDT Narrative [facility] - 04/19/2025 2:39 PM EDT Ingestion of greg doses of biotin (>5 mg/day) taken within 8 hours of drawing blood sample can interfere with this immunoassay test. us Gen Bland MD CHEMISTRY ORDERABLES Final Resu lt Performing Organization Address [facility]/ZIP Co de Phone Number [address] [address] * LIPASE LEVEL (04/19/2025 2:15 PM EDT) [facility] Lipase Lvl 56 13 - 60 U/L 04/19/2025 2:39 PM EDT [facility] Blood VENOUS BLOOD / Unknown Venipuncture / Unknown 04/19/2025 2:15 PM EDT 04/19/2025 2:18 PM EDT us Gen Bland MD CHEMISTRY ORDERABLES Final Resu lt Performing Organization Address City/[facility]/ZIP Co de Phone Number [facility] [address] [place] [address] * HEPATIC FUNCTION PANEL (04/19/2025 2:15 PM EDT) [facility] Total Protein 6.9 6.4 - 8.3 gm/dL 04/19/2025 2:39 PM EDT [facility] Albumin 4.2 3.5 - 5.2 gm/dL 04/19/2025 2:39 PM EDT [facility] Bili Direct <0.2 0.0 - 0.3 mg/dL 04/19/2025 2:39 PM EDT [facility] Bili Total 0.5 0.2 - 1.3 mg/dL 04/19/2025 2:39 PM EDT [facility] AST 12 <=40 U/L 04/19/2025 2:39 PM EDT [facility] ALT <5 <=41 U/L 04/19/2025 2:39 PM EDT [facility] Alk Phos 54 36 - 123 U/L 04/19/2025 2:39 PM EDT [facility] Blood VENOUS BLOOD / Unknown Venipuncture / Unknown 04/19/2025 2:15 PM EDT 04/19/2025 2:18 PM EDT us Gen Bland MD CHEMISTRY ORDERABLES Final Resu lt [facility] [address] [place] [address] * BASIC METABOLIC PANEL (04/19/2025 2:15 PM EDT) Sodium 138 136 - 145 mmol/L 04/19/2025 2:39 PM EDT [facility] Potassium 3.8 3.5 - 5.0 mmol/L 04/19/2025 2:39 PM EDT [facility] Chloride 101 98 - 107 mmol/L 04/19/2025 2:39 PM EDT [facility] Total CO2 26 22 - 29 mmol/L 04/19/2025 2:39 PM EDT [facility] Anion Gap 11 7 - 16 mmol/L 04/19/2025 2:39 PM EDT [facility] Calcium 10.0 8.6 - 10.4 mg/dL 04/19/2025 2:39 PM EDT [facility] Glucose Lvl 95 70 - 99 mg/dL 04/19/2025 2:39 PM EDT [facility] BUN 14 6 - 20 mg/dL 04/19/2025 2:39 PM EDT [facility] Creatinine 1.09 0.51 - 1.30 mg/dL 04/19/2025 2:39 PM EDT [facility] eGFR (CKD-EPIcr 2020) 65 >=60 mL/min/1.7 3 m2 04/19/2025 2:39 PM EDT [facility] Comment:Estimated GFR was ca lculated using the CKD-EPIcr (2020) equation refit without race. The equation is recommended by the National Kidney [employer] - [place] [employer] of Nephrology Task Force. Blood VENOUS BLOOD / Unknown Venipuncture / Unknown 04/19/2025 2:15 PM EDT 04/19/2025 2:18 PM EDT us Gen Bland MD CHEMISTRY ORDERABLES Final Resu lt [facility] [address] [place] [id number] * CBC WITH DIFF (04/19/2025 2:15 PM EDT) WBC 8.0 3.7 - 10.3 x10(3)/mcL 04/19/2025 2:22 PM EDT [facility] RBC 3.96 3.90 - 5.20 x10(6)/mcL 04/19/2025 2:22 PM EDT [facility] Hgb 12.1 11.2 - 15.7 g/dL 04/19/2025 2:22 PM EDT [facility] Hct 37.5 34.0 - 45.0 % 04/19/2025 2:22 PM EDT [facility] MCV 94.7 80.0 - 100.0 fL 04/19/2025 2:22 PM EDT [facility] MCH 30.6 26.0 - 34.0 pg 04/19/2025 2:22 PM EDT [facility] MCHC 32.3 30.7 - 35.5 g/dL 04/19/2025 2:22 PM EDT [facility] RDW 12.4 <=14.9 % 04/19/2025 2:22 PM EDT [facility] Platelet 262 155 - 369 x10(3)/mcL 04/19/2025 2:22 PM EDT [facility] MPV 9.2 8.8 - 12.5 fL 04/19/2025 2:22 PM EDT [facility] Neut Percent 62.8 % 04/19/2025 2:22 PM EDT [facility] Comment:Neutrophils equals s egs plus bands Imm Gran% 0.3 % 04/19/2025 2:22 PM EDT [facility] Comment:Automated count of m etamyelocytes, myelocytes and promyelocytes. Lymph Percent 29.4 % 04/19/2025 2:22 PM EDT [facility] Steele Percent 5.8 % 04/19/2025 2:22 PM EDT [facility] Eos Percent 1.4 % 04/19/2025 2:22 PM EDT [facility] Baso Percent 0.3 % 04/19/2025 2:22 PM EDT [facility] Neut # 5.0 1.6 - 6.1 x10(3)/[facility] 04/19/2025 2:22 PM EDT [facility] Comment:Neutrophils equals s egs plus bands IMMGRAN# 0.0 0.0 - 0.1 x10(3)/[facility] 04/19/2025 2:22 PM EDT [facility] Comment:Automated count of m etamyelocytes, myelocytes and promyelocytes. An absolute IG <0.1 is reported as 0.0. Lymph # 2.3 1.2 - 3.9 x10(3)/[facility] 04/19/2025 2:22 PM EDT [facility] Steele # 0.5 0.3 - 0.9 x10(3)/[facility] 04/19/2025 2:22 PM EDT [facility] Eos# 0.1 0.0 - 0.5 x10(3)/[facility] 04/19/2025 2:22 PM EDT [facility] Baso # 0.0 0.0 - 0.1 x10(3)/[facility] 04/19/2025 2:22 PM EDT [facility] Blood VENOUS BLOOD / Unknown Venipuncture / Unknown 04/19/2025 2:15 PM EDT 04/19/2025 2:18 PM EDT us Gen Bland MD HEMATOLOGY ORDERABLES Final Res ult Performing Organization Address [facility] Co de Phone Number [facility] [address] [place] [address] * URINE CULTURE (NO STAIN) (04/19/2025 2:14 PM EDT) Culture Multiple bacterial species isolated from urine consistent with urogenital commensal organisms. 04/21/2025 4:21 PM EDT [facility] Urine STRUCTURE OF URINARY TRACT PROPER / Unknown 04/19/2025 2:14 PM EDT 04/19/2025 2:35 PM EDT us Gen Bland MD MICROBIOLOGY - GENERAL ORDERABL ES Final Result Performing Organization Address [facility] de Phone Number [facility], [facility] [address] [facility], [address] [place] [phone] * EXTRA REYES URINE CX (04/19/2025 2:14 PM EDT) Urine STRUCTURE OF URINARY TRACT PROPER / Unknown 04/19/2025 2:14 PM EDT 04/19/2025 2:26 PM EDT us Gen Bland MD MICROBIOLOGY - GENERAL ORDERABL ES Final Result Performing Organization Address [facility] de Phone Number [facility] [address] [place] [address] * (ABNORMAL) URINALYSIS REFLEX (04/19/2025 2:14 PM EDT) UA Color Light Yellow 04/19/2025 2:35 PM EDT [facility] UA Appear Clear Clear 04/19/2025 2:35 PM EDT [facility] UA Glucose Negative Negative mg/dL 04/19/2025 2:35 PM EDT [facility] UA Ketones Negative Negative mg/dL 04/19/2025 2:35 PM EDT [facility] UA Blood Negative Negative 04/19/2025 2:35 PM EDT [facility] UA pH 6.0 5.0 - 8.0 pH 04/19/2025 2:35 PM EDT [facility] UA Protein Negative Negative mg/dL 04/19/2025 2:35 PM EDT [facility] UA Urobilinogen Normal <=1 mg/dL 2:35 PM EDT [facility] UA Bili Negative Negative 04/19/2025 2:35 PM EDT [facility] UA Nitrite Negative Negative 04/19/2025 2:35 PM EDT [facility] UA Leuk Est 1+ (25 Rolando/mcl)(A) Negative 04/19/2025 2:35 PM EDT [facility] UA Spec Grav 1.024 1.001 - 1.035 no units 04/19/2025 2:35 PM EDT [facility] Comment:Reference range alcon d for random specimens only. UA WBC 4 0 - 4 /HPF 04/19/2025 2:35 PM EDT [facility] UA RBC <1 0 - 3 /HPF 04/19/2025 2:35 PM EDT [facility] UA Squam Epi 4+ /LPF 04/19/2025 2:35 PM EDT [facility] UA Mucus Trace /LPF 04/19/2025 2:35 PM EDT [facility] UA Bacteria Trace(A) Negative /HPF 04/19/2025 2:35 PM EDT [facility] Urine STRUCTURE OF URINARY TRACT PROPER / Unknown 04/19/2025 2:14 PM EDT 04/19/2025 2:26 PM EDT us Gen Bland MD URINE ORDERABLES Final Result [facility] [address] [facility] , [place] [address] * EK EKG 12 LEAD (04/19/2025 12:40 PM EDT) Anatomical Region Laterality Modality Electrocardiogra phy 04/19/2025 12:4 6 PM EDT Impressions 04/19/2025 3:51 PM EDT [place] [facility] Date: 2025-04-19 Pat Name: JIM ROWLEY Department: DEPID Room: Gender: Female Doorperson: : 1985 Requested By: [facility] Order Number: [id number] Reading MD: Janice Llanes MD Measurements Intervals [place] Rate: 71 P: 56 [place]: 198 QRS: 52 QRSD: 92 T: 55 QT: 374 QTc: 407 Interpretive Statements SINUS RHYTHM Electronically Signed On 04-19-2025 15:51:50 EDT by Janice Llanes MD Narrative Procedure Note Janice Llanes MD - 04/19/[address] [facility] Test Date: 2025-04-19 Pat Name: JIM ROWLEY Department: DEPID Room: Gender: Female Doorperson: : 1985 Requested By: [facility] Order Number: [id number] Reading MD: Janice Llanes MD Measurements Intervals [place] Rate: 71 P: 56 [place]: 198 QRS: 52 QRSD: 92 T: 55 QT: 374 QTc: 407 Interpretive Statements SINUS RHYTHM Electronically Signed On 04-19-2025 15:51:50 EDT by Janice Llanes MD Gen Bland MD IMG ECG ORDERABLES Final Result documented in this encounter Visit Diagnoses Diagnosis Syncope and collapse- Primary Nausea and vomiting, unspecified vomiting type Nonintractable headache, unspecified chronicity pattern, unspecified headache type 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 Periumbilical hernia Umbilical hernia without mention of obstruction or gangrene documented in this encounter Administered Medications Inactive Administered Medications - up to 1 most recent administrations Medication Order MAR Action Action Date Dose Rate Site diphenhydrAMINE (BENADRYL) injection 25 mg 25 mg, Intravenous, ONCE, 1 dose, On Thu04/19/25 at 1415 Given 04/19/2025 3:09 PM EDT 25 mg iopamidoL (ISOVUE-370) 370 mg iodine /mL (76 %) injection (LOW) 75 mL 75 mL, Intravenous, ONCE PRN, 1 dose, Starting on Thu04/19/25 at 1445, Until Thu04/19/25 at 1458, Radiography/Imaging, Radiology Procedure, VESICANT , CT (Contrasts) Given 04/19/2025 2:58 PM EDT 75 mL iopamidoL (ISOVUE-370) 370 mg iodine /mL (76 %) injection (LOW) 75 mL 75 mL, Intravenous, ONCE PRN, 1 dose, Starting on Thu04/19/25 at 1502, Until Thu04/19/25 at 1503, Radiography/Imaging, Radiology Procedure, VESICANT , CT (Contrasts) Given 04/19/2025 3:03 PM EDT 75 mL metoclopramide HCl (REGLAN) injection 10 mg 10 mg, Intravenous, ONCE, 1 dose, On Thu04/19/25 at 1415 Given 04/19/2025 3:11 PM EDT 10 mg sodium chloride 0.9 % 1,000 mL IV bolus Intravenous, ONCE, 1 dose, On Thu04/19/25 at 1415, at 983.6 mL/hr IV Started 04/19/2025 3:08 PM EDT 983.6 mL/hr sodium chloride 0.9% syringe 10 mL 10 mL, Intravenous, ONCE PRN, 1 dose, Starting on Thu04/19/25 at 1445, Until Thu04/19/25 at 1458, Line Care, Flush peripheral lines every 12 hours, central lines every 8 hours, and after IV medication, CT (Contrasts) Given 04/19/2025 2:58 PM EDT 10 mL documented in this encounter Active and Recently Administered Medications Times are shown in EDT. Scheduled Medication Order 04/17/2025 04/18/2025 04/19/2025 diphenhydrAMINE (BENADRYL) injection 25 mg (COMPLETED) 25 mg, Intravenous, ONCE, 1 dose, On Thu04/19/25 at 1415 1509 (Given - Provid er: Chen Rajan RN) metoclopramide HCl (REGLAN) injection 10 mg (COMPLETED) 10 mg, Intravenous, ONCE, 1 dose, On Thu04/19/25 at 1415 1511 (Given - Provid er: Chen Rajan RN) sodium chloride 0.9 % 1,000 mL IV bolus (COMPLETED) Intravenous, ONCE, 1 dose, On Thu04/19/25 at 1415, at 983.6 mL/hr 1508 (IV Started - P rovider: Chen Rajan RN)1609 (Stopped - Provider: Chen Rajan RN) PRN Medication Order 04/17/2025 04/18/2025 04/19/2025 iopamidoL (ISOVUE-370) 370 mg iodine /mL (76 %) injection (LOW) 75 mL (COMPLETED) 75 mL, Intravenous, ONCE PRN, 1 dose, Starting on Thu04/19/25 at 1445, Until Thu04/19/25 at 1458, Radiography/Imaging, Radiology Procedure, VESICANT , CT (Contrasts) 1458 (Given - Provid er: Amada Garcia, RT) iopamidoL (ISOVUE-370) 370 mg iodine /mL (76 %) injection (LOW) 75 mL (COMPLETED) 75 mL, Intravenous, ONCE PRN, 1 dose, Starting on Thu04/19/25 at 1502, Until Thu04/19/25 at 1503, Radiography/Imaging, Radiology Procedure, VESICANT , CT (Contrasts) 1503 (Given - Provid er: Amada Garcia, RT) sodium chloride 0.9% syringe 10 mL (COMPLETED) 10 mL, Intravenous, ONCE PRN, 1 dose, Starting on Thu04/19/25 at 1445, Until Thu04/19/25 at 1458, Line Care, Flush peripheral lines every 12 hours, central lines every 8 hours, and after IV medication, CT (Contrasts) 1458 (Given - Provid er: Amada Garcia, RT) documented in this encounter Care Teams Pharmacy Affairs Assistant Relationship Specialty Start Date End Date Colt Man MD PCP - General Family Medicine 01/26/12 documented as of this encounter
--- OUTSIDE RECORDS SUMMARY | 2025-05-08 11:55 | XMS_ITS | Clinical Summary ---
Author Organization [facility] Address [address] [place] [address] Care Team Providers Care Cadmium Burner Name Role Phone Colt Man MD Primary Care Provider [phone] Allergies No known active allergies Medications No known medications Family History Medical History Relation Name Comments Heart Problems Mother Anesthesia Complications Neg Hx Relation Name Status Comments Mother Alive Social History Tobacco Use Types Packs/Day Years Used Date Smoking Tobacco: Every Day Cigarettes Smokeless Tobacco: Never Alcohol Use Standard Drinks/Week Comments No 0 (1 standard drink = 0.6 oz pur e alcohol) Comments Unknown Sex and Gender Information Value Date Recorded Sex Assigned at Not on file Legal Sex Female 4:39 PM EST Gender Identity Not on file Sexual Orientation Not on file Last Filed Vital Signs Vital Sign Reading Time Taken Comments Blood Pressure 115/65 05/03/2010 4:00 PM EDT Pulse 82 05/03/2010 4:00 PM EDT Temperature 36.7 C (98.1 F) 05/03/2010 4:00 PM EDT Respiratory Rate 18 05/03/2010 4:00 PM EDT Oxygen Saturation 100% 05/02/2010 5:38 PM EDT Inhaled Oxygen Concentration - - Weight 70.3 kg (155 lb) 03/30/2020 10:29 AM EDT Height 167.6 cm (5' 6 ) 03/30/2020 10:29 AM EDT Body Mass Index 25.02 03/30/2020 10:29 AM EDT Plan of Treatment Not on file Insurance Care Teams Cadmium Burner Relationship Specialty [place] [address] [place] [address] PCP - General Family Medicine 03/31/20
--- OUTSIDE RECORDS SUMMARY | 2025-05-08 11:55 | XMS_ITS | Clinical Summary ---
Author Organization [facility] Address [address] [place] [address] Care Team Providers Care Clinical Services Manager Name Role Phone Unavailable Primary Care Provider Unavailabl e Allergies Active Allergy Reactions Criticality Noted Date Comments Hydrocodone-Acetaminophen Nausea And Vomiting 0 12/13/2020 Ondansetron Hcl Nausea And Vomiting High 01/14/2024 Promethazine Nausea And Vomiting High 01/14/2024 Medications ibuprofen (ADVIL,MOTRIN) 600 mg tablet Take 1 (ONE) tablet (600 mg total) by mouth in the morning and 1 (ONE) tablet (600 mg total) at noon and 1 (ONE) tablet (600 mg total) in the evening and 1 (ONE) tablet (600 mg total) before bedtime. 40 tablet 5 Active triazolam (HALCION) 0.25 mg tablet Take 1 tablet 1 hour before procedure in dental office. 1 tablet 5 Active fluoride, sodium, (PreviDent 5000 Booster Plus) 1.1 % paste Apply to teeth in the morning and at bedtime. Avoid eating and drinking for 30 minutes after use. 100 mL 5 Active Active Problems Problem Noted Date Diagnosed Date Menorrhagia with regular cycle 02/08/2024 Incisional hernia, without obstruction or gangre ne 01/04/2020 Overview (01/06/2025): Added automatically from request for surgery [id number] Umbilical hernia 07/23/2012 Overview (01/06/2025): Added automatically from request for surgery [id number] Encounters Date Type Department Care Team Description 02/20/2025 Orders Only [facility] [address], [place] [address] Stanley Ash DDS from Last 3 Months Social History Tobacco Use Types Packs/Day Years Used Date Smoking Tobacco: Former Cigarettes Q uit: 01/03/2022 Smokeless Tobacco: Never Tobacco Cessation:Counseling Given: Not Answered Alcohol Use Standard Drinks/Week Comments Yes 0 (1 standard drink = 0.6 oz pur e alcohol) Comments Unknown Sex and Gender Information Value Date Recorded Sex Assigned at Not on file Legal Sex Female 12:46 PM PDT Gender Identity Not on file Sexual Orientation Not on file Last Filed Vital Signs Vital Sign Reading Time Taken Comments Blood Pressure 93/66 01/06/2025 1:44 PM EDT Pulse 83 01/06/2025 1:44 PM EDT Temperature - - Respiratory Rate - - Oxygen Saturation - - Inhaled Oxygen Concentration - - Weight - - Height - - Body Mass Index - - Plan of Treatment Health Maintenance Due Date Last Done Comments Dental Prophylaxis 1985 Dental X-Ray: Panoramic 1985 Dental Oral Exam 07/09/2025 01/06/2025 Dental X-Ray: Bitewings 07/09/2025 01/06/2025 Dental CBCT 01/07/2028 01/06/2025 Dental X-Ray: Full Mouth 01/09/2028 01/07/2025, 12/20 Procedures Procedure Name Priority Date/Time Associated Diagnosis Comments SUPERVISOR [employer]PERATIONS CBCT Routine 01/06/2025 1:00 PM EDT INTRAORAL - COMPREHENSIVE SERIES OF RADIOGRAPHIC IMAGES Routine 01/06/2025 1:00 PM EDT COMPREHENSIVE ORAL EVALUATION - NEW OR ESTABLISHED PATIENT Routine 01/06/2025 1:00 PM EDT Encounter for dental examination and cleaning without abnormal findings from Last 3 Months or Most Recently Relevant to Health Maintenance Insurance [facility] PPO [facility]
--- OUTSIDE RECORDS SUMMARY | 2025-05-08 11:55 | XMS_ITS | Clinical Summary ---
Author Organization [facility] [place] [address] [place] [address] Phone Care Team Providers Care Head Pastry Chef Name Role Phone Colt Man MD Primary Care Provider [phone] Allergies Active Allergy Reactions Criticality Noted Date Comments Promethazine Nausea And Vomiting High 01/14/2024 Hydrocodone-Acetaminophen Nausea And Vomiting 0 12/13/2020 Ondansetron Hcl Nausea And Vomiting High 01/14/2024 Medications dimenhyDRINATE (DRAMAMINE) 50 mg tabletIndicatio ns:nausea Take 50 mg by mouth as needed for Breakthrough Nausea/Vomiting. Indications: nausea Active aspirin/acetami nophen/caffeine (EXCEDRIN EXTRA STRENGTH ORAL) Take by mouth as needed for Other. Active cetirizine (ZYRTEC) 10 mg Oral Tablet Take 10 mg by mouth daily as needed for Allergies. Alternates with loratadine Active lamoTRIgine (LAMICTAL) 150 mg Oral Tablet Take 150 mg by mouth daily. Active lithium 300 mg Oral Capsule Take 300 mg by mouth daily. Active escitalopram oxalate (LEXAPRO) 5 mg Oral Tablet 4 Active WEGOVY 1 mg/0.5 mL SubQ Pen Injector Subcutaneous (Inject under the skin) 1 mg once a week. saturdays 4 Active ibuprofen (ADVIL;MOTRIN) 800 mg Oral Tablet Take 1 Tablet by mouth every 6 hours as needed. 30 Tablet 03/16/2024 9:38 AM EDT 4 Active CAPLYTA 42 mg Oral Capsule Take 1 Capsule by mouth daily. 5 Active metoclopramide HCl (REGLAN) 10 mg Oral Tablet Take 1 Tablet by mouth every 8 hours as needed for Nausea for up to 30 days. 20 Tablet 04/19/2025 4:31 PM EDT 5 05/19/20 25 Active Active Problems Patient Care Coordination No te Formatting of this note migh t be different from the original. ALAN 07/20/11-07/19/12 SDT Problem Noted Date Diagnosed Date Menorrhagia with regular cycle 02/08/2024 Umbilical hernia without obstruction and without gangrene 11/16/2020 Overview (11/16/2020): Added automatically from request for surgery [id number] Incisional hernia, without obstruction or gangre ne 01/04/2020 Overview (01/04/2020): Added automatically from request for surgery [id number] Umbilical hernia 07/23/2012 Encounters Date Type Department Care Team Description 04/19/2025 1:53 PM EDT - 04/19/2025 4:41 PM EDT Emergency [facility] [place] [address] Gen Bland MD Syncope and collapse (Primary Dx); Nausea and vomiting, unspecified vomiting type; Nonintractable headache, unspecified chronicity pattern, unspecified headache type; Pericardial cyst; Lung granuloma (HCC); Periumbilical hernia Discharge Disposition: Home or Self Care from Last 3 Months Surgical History Surgery Date Site/Laterality Comments UMBILICAL HERNIA REPAIR 02/06/2012 Surgeon: eLonides Youssef MD; Location: [facility]; Service: Thoracic CHOLECYSTECTOMY 02/06/2012 Abdomen/N/A DAVINCI ROBOTIC LAPAROSCOPIC CHOLECYSTECTOMY , UMBILICAL HERNIA REPAIR; Surgeon: Leonides Youssef MD; Location: [facility]; Service: Thoracic BLADDER SURGERY 2006 urethra stretched UMBILICAL HERNIA REPAIR 08/06/2012 Abdomen/N/A UMBILICAL HERNIA REPAIR ; Surgeon: Leonides Youssef MD; Location: [facility]; Service: Thoracic VENTRAL HERNIA REPAIR 01/10/2020 N/A Open repair incisional hernia with Mesh ; Surgeon: Leonides Youssef MD; Location: [facility]; Service: General Medical devices from this surgery are in the Medical Devices section. UMBILICAL HERNIA REPAIR 12/13/2020 N/A Excision of stitch granuloma and scar tissue.; Surgeon: Lin Patterson MD; Location: [facility]; Service: General ENDOMETRIAL ABLATION 03/16/2024 N/A ENDOMETRIAL ABLATION WITH NOVASURE DILATION AND CURETTAGE, HYSTEROSCOPY; Surgeon: Ave Díaz MD; Location: [facility]; Service: Gynecology Medical History Medical History Date Comments Gallbladder disease Nausea Umbilical hernia 07/23/2012 Urinary incontinence costa Other disorders of kidney and ureter has had urethra stretched Depression Post-operative nausea and vomiting unsure if anesthesia, but for sure with pain meds- uses scop patch Wears glasses Family History Medical History Relation Name Comments No Known Problems Brother No Known Problems Father No Known Problems Maternal Aunt No Known Problems Maternal Grandfather No Known Problems Maternal Grandmother No Known Problems Maternal Uncle No Known Problems Mother No Known Problems Other No Known Problems Paternal Aunt No Known Problems Paternal Grandfather No Known Problems Paternal Grandmother No Known Problems Paternal Uncle No Known Problems Sister Anesth Problems Neg Hx Asthma Neg Hx Defects Neg Hx Bleeding Prob Neg Hx Breast Cancer Neg Hx Cancer Neg Hx Chorea Neg Hx Clotting Disorder Neg Hx Cystic Fibrosis Neg Hx Diabetes Neg Hx Down Syndrome Neg Hx Heart Defect Neg Hx Heart Failure Neg Hx High Cholesterol Neg Hx Hypertension Neg Hx Mental Retardation Neg Hx Migraines Neg Hx Osteoarthritis Neg Hx Ovarian Cancer Neg Hx PKU Neg Hx Rashes/Skin Problems Neg Hx Rheum Arthritis Neg Hx Seizures Neg Hx Sickle Cell Anemia Neg Hx Stroke Neg Hx Thyroid Disease Neg Hx Relation Name Status Comments Brother Father Alive Maternal Aunt Maternal Grandfather Maternal Grandmother Maternal Uncle Mother Alive Other Paternal Aunt Paternal Grandfather Paternal Grandmother Paternal Uncle Sister Social History Tobacco Use Types Packs/Day Years Used Date Smoking Tobacco: Former Cigarettes 1 10 Passive Smoke Exposure: Past Smokeless Tobacco: Never Tobacco Cessation:Counseling Given: Not Answered Comments:Quit smoking 12/2021 Alcohol Use Standard Drinks/Week Comments Not Currently 0 (1 standard drink = 0.6 oz pur e alcohol) Sexually Active Control Partners Comments Yes Male Comments No Sex and Gender Information Value Date Recorded Sex Assigned at Not on file Legal Sex Female 9:02 PM EDT Gender Identity Not on file Sexual Orientation Not on file Obstetrics History Para Term AB IAB SAB Ectopic Multiple Livin g Live Births 2 2 2 Date Outcome GA Total Labor Labor/2nd/3rd Weight Sex Type Anes PTL Kylah A1 A5 Name Clin Para Vag-Spo nt Para Vag-Spo nt Last Filed Vital Signs Vital Sign Reading Time Taken Comments Blood Pressure 93/48 04/19/2025 4:30 PM EDT Pulse 83 04/19/2025 4:30 PM EDT Temperature 36.7 C (98.1 F) 04/19/2025 12:51 PM EDT Respiratory Rate 20 04/19/2025 4:30 PM EDT Oxygen Saturation 100% 04/19/2025 3:30 PM EDT Inhaled Oxygen Concentration - - Weight 65.9 kg (145 lb 4.8 oz) 04/19/2025 12:51 PM EDT Height 167.6 cm (5' 6 ) 12/10/2024 9:21 PM EDT Body Mass Index 23.45 12/10/2024 9:21 PM EDT Plan of Treatment Health Maintenance Due Date Last Done Comments Annual Wellness Exam 1986 DTaP/TDaP/Td (1 - Tdap) 2002 Hepatitis B Vaccine (1 of 3 - 19+ 3-dose series) 2002 COVID-19 Vaccine (2023-2 5 season) 2024 09/06/2021, 08/16/2021 Influenza Vaccine (#1) 2025 Breast Cancer Screening 01/25/2026 01/26/2024 Pap Smear 01/13/2027 01/14/2024 Cervical Cancer Screening 01/13/2029 HPV/Pap Cotest 01/13/2029 01/14/2024 Meningococcal B Vaccine Aged Out No l onger eligible based on patient's age to complete this topic Pneumococcal Vaccine 0-49 Aged Out No longer eligible based on patient's age to complete this topic Medical Devices Implanted Type Area Tea Bag Packer Device Identifier Shelf Expiration Date Model / Serial / Lot Patch Hernia St Ventralex Medium [place] With Strap 6.4 - [id number] Implanted:Qty : 1 on 01/10/2020 by Leonides Youssef MD at [facility] N/A: Abdomen CR BARD:DAVOL [id number] 05/18/2021 [id number] / / [id number] Procedures Procedure Name Priority Date/Time Associated Diagnosis Comments SCANNED EKG 04/20/2025 12:[address] ANGIOGRAM CHEST ABDOMEN PELVIS W CONTRAST STAT 04/19/2025 3:[address] ANGIOGRAM HEAD AND NECK W CONTRAST STAT 04/19/2025 2:[address] HEAD WO CONTRAST STAT 04/19/2025 2 :58 PM EDT HUMAN CHORIONIC GONADOTROPIN QUANTITATIVE STAT 04/19/2025 2:15 PM EDT LACTIC ACID STAT 04/19/2025 2:15 PM EDT TROPONIN-T HIGH SENSITIVITY BASELINE W/ REFLEX STAT 04/19/2025 2:15 PM EDT LIPASE LEVEL STAT 04/19/2025 2:15 PM EDT HEPATIC FUNCTION PANEL STAT 04/19/2025 2:15 PM EDT BASIC METABOLIC PANEL STAT 04/19/2025 2:15 PM EDT CBC WITH DIFF STAT 04/19/2025 2:15 PM EDT URINALYSIS REFLEX STAT 04/19/2025 2:1 4 PM EDT UA W/REFLEX TO CULTURE STAT 04/19/2025 2:14 PM EDT URINE CULTURE (NO STAIN) STAT 04/19/2025 2:14 PM EDT EXTRA REYES URINE CX STAT 04/19/2025 2 :14 PM EDT EK EKG 12 LEAD STAT 04/19/2025 12:40 PM EDT MM MAMMO DIGITAL RIZWANA SCREEN BILAT Routine 01/26/2024 9:24 AM EDT Encounter for screening mammogram for malignant neoplasm of breast FUR TRAPPER CYTOLOGY REQUEST (PAP ONLY) Routine 01/14/2024 10:05 AM EDT Well woman exam with routine gynecological exam from Last 3 Months or Most Recently Relevant to Health Maintenance Results * SCANNED EKG (04/20/2025 12:22 PM [...] 3. Small volume pelvic free fluid. - Gen Bland MD IMG CT ORDERABLES Final [...] NASCET criteria used for estimates of stenosis. us Gen Bland MD IM CT ORDERABLES Final Result * CT HEAD [...] MD IMG CT ORDERABLES Final Result * TROPONIN-T HIGH SENSITIVITY BASELINE W/ REFLEX (04/19/2025 2:15 PM EDT) [facility] gd-wCperylaq-M <6 <14 ng/L 04/19/2025 2:39 PM EDT [facility] Blood VENOUS BLOOD / Unknown Venipuncture / Unknown 04/19/2025 2:15 PM EDT 04/19/2025 2:18 PM EDT Narrative [facility] - 04/19/2025 2:39 PM EDT Ingestion of greg doses of biotin (>5 mg/day) taken within 8 hours of drawing blood sample can interfere with this immunoassay test. us Gen Bland MD CHEMISTRY ORDERABLES Final Resu lt [facility] [address] [place] [address] * CBC WITH DIFF (04/19/2025 2:15 PM EDT) [facility] WBC 8.0 3.7 - 10.3 x10(3)/mcL 04/19/2025 2:22 PM EDT [facility] RBC 3.96 3.90 - 5.20 x10(6)/mcL 04/19/2025 2:22 PM EDT [facility] Hgb 12.1 11.2 - 15.7 g/dL 04/19/2025 2:22 PM EDT [facility] Hct 37.5 34.0 - 45.0 % 04/19/2025 2:22 PM EDT [facility] MCV 94.7 80.0 - 100.0 fL 04/19/2025 2:22 PM EDT [facility] MCH 30.6 26.0 - 34.0 pg 04/19/2025 2:22 PM EDT [facility] MCHC 32.3 30.7 - 35.5 g/dL 04/19/2025 2:22 PM EDT [facility] RDW 12.4 <=14.9 % 04/19/2025 2:22 PM EDT [facility] Platelet 262 155 - 369 x10(3)/mcL 04/19/2025 2:22 PM EDT [facility] MPV 9.2 8.8 - 12.5 fL 04/19/2025 2:22 PM EDT [facility] Neut Percent 62.8 % 04/19/2025 2:22 PM EDT [facility] Comment:Neutrophils equals s egs plus bands Imm Gran% 0.3 % 04/19/2025 2:22 PM EDT [facility] Comment:Automated count of m etamyelocytes, myelocytes and promyelocytes. Lymph Percent 29.4 % 04/19/2025 2:22 PM EDT [facility] Coamo Percent 5.8 % 04/19/2025 2:22 PM EDT [facility] Eos Percent 1.4 % 04/19/2025 2:22 PM EDT [facility] Baso Percent 0.3 % 04/19/2025 2:22 PM EDT [facility] Neut # 5.0 1.6 - 6.1 x10(3)/mcL 04/19/2025 2:22 PM EDT [facility] Comment:Neutrophils equals s egs plus bands IMMGRAN# 0.0 0.0 - 0.1 x10(3)/mcL 04/19/2025 2:22 PM EDT [facility] Comment:Automated count of m etamyelocytes, myelocytes and promyelocytes. An absolute IG <0.1 is reported as 0.0. Lymph # 2.3 1.2 - 3.9 x10(3)/mcL 04/19/2025 2:22 PM EDT [facility] Coamo # 0.5 0.3 - 0.9 x10(3)/mcL 04/19/2025 2:22 PM EDT [facility] Eos# 0.1 0.0 - 0.5 x10(3)/mcL 04/19/2025 2:22 PM EDT [facility] Baso # 0.0 0.0 - 0.1 x10(3)/mcL 04/19/2025 2:22 PM EDT [facility] Blood VENOUS BLOOD / Unknown Venipuncture / Unknown 04/19/2025 2:15 PM EDT 04/19/2025 2:18 PM EDT us Gen Bland MD HEMATOLOGY ORDERABLES Final Res ult Performing Organization Address [facility] Co de Phone Number [address] [address] * HUMAN CHORIONIC GONADOTROPIN QUANTITATIVE (04/19/2025 2:15 PM EDT) [facility] Hcg Quant <1 <5 mIU/mL 04/19/2025 2:40 PM EDT [facility] Blood VENOUS BLOOD / Unknown Venipuncture / Unknown 04/19/2025 2:15 PM EDT 04/19/2025 2:18 PM EDT Narrative [facility] - 04/19/2025 2:40 PM EDT [...] ORDERABLES Final Resu lt Performing Organization Address [facility]/ZIP Co de Phone Number [address] [address] * LIPASE LEVEL (04/19/2025 2:15 PM EDT) Pathologist [facility] Lipase Lvl 56 13 - 60 U/L 04/19/2025 2:39 PM EDT [facility] Blood VENOUS BLOOD / Unknown Venipuncture / Unknown 04/19/2025 2:15 PM EDT 04/19/2025 2:18 PM EDT us Gen Bland MD CHEMISTRY ORDERABLES Final Resu lt Performing Organization Address [facility]/ZIP Co de Phone Number [facility] [address] [place] [address] * LACTIC ACID (04/19/2025 2:15 PM EDT) [facility] Lactic Acid 0.7 0.5 - 1.9 mmol/L 04/19/2025 2:32 PM EDT [facility] Blood VENOUS BLOOD / Unknown Venipuncture / Unknown 04/19/2025 2:15 PM EDT 04/19/2025 2:18 PM EDT us Gen Bland MD CHEMISTRY ORDERABLES Final Resu lt Performing Organization Address [facility]/ZIP Co de Phone Number [facility] [address] [place] [address] * HEPATIC FUNCTION PANEL (04/19/2025 2:15 PM EDT) Pathologist [facility] Total Protein 6.9 6.4 - 8.3 gm/dL 04/19/2025 2:39 PM EDT [facility] Albumin 4.2 3.5 - 5.2 gm/dL 04/19/2025 2:39 PM EDT [facility] Bili Direct <0.2 0.0 - 0.3 mg/dL 04/19/2025 2:39 PM EDT [facility] Bili Total 0.5 0.2 - 1.3 mg/dL 04/19/2025 2:39 PM EDT [facility] AST 12 <=40 U/L 04/19/2025 2:39 PM EDT [facility] ALT <5 <=41 U/L 04/19/2025 2:39 PM EDT [facility] Alk Phos 54 36 - 123 U/L 04/19/2025 2:39 PM EDT [facility] Blood VENOUS BLOOD / Unknown Venipuncture / Unknown 04/19/2025 2:15 PM EDT 04/19/2025 2:18 PM EDT us Gen Bland MD CHEMISTRY ORDERABLES Final Resu lt [facility] [address] [place] [address] * BASIC METABOLIC PANEL (04/19/2025 2:15 PM EDT) Sodium 138 136 - 145 mmol/L 04/19/2025 2:39 PM EDT [facility] Potassium 3.8 3.5 - 5.0 mmol/L 04/19/2025 2:39 PM EDT [facility] Chloride 101 98 - 107 mmol/L 04/19/2025 2:39 PM EDT [facility] Total CO2 26 22 - 29 mmol/L 04/19/2025 2:39 PM EDT [facility] Anion Gap 11 7 - 16 mmol/L 04/19/2025 2:39 PM EDT [facility] Calcium 10.0 8.6 - 10.4 mg/dL 04/19/2025 2:39 PM EDT [facility] Glucose Lvl 95 70 - 99 mg/dL 04/19/2025 2:39 PM EDT [facility] BUN 14 6 - 20 mg/dL 04/19/2025 2:39 PM EDT [facility] Creatinine 1.09 0.51 - 1.30 mg/dL 04/19/2025 2:39 PM EDT [facility] eGFR (CKD-EPIcr 2020) 65 >=60 mL/min/1.7 3 m2 04/19/2025 2:39 PM EDT [facility] Comment:Estimated GFR was ca lculated using the CKD-EPIcr (2020) equation refit without race. The equation is recommended by the National Kidney Foundation - [place] [employer] Task Force. Blood VENOUS BLOOD / Unknown Venipuncture / Unknown 04/19/2025 2:15 PM EDT 04/19/2025 2:18 PM EDT us Gen Bland MD CHEMISTRY ORDERABLES Final Resu lt [facility] [address] [place], [place] [id number] * (ABNORMAL) URINALYSIS REFLEX (04/19/2025 2:14 PM EDT) UA Color Light Yellow 04/19/2025 2:35 PM EDT [facility] UA Appear Clear Clear 04/19/2025 2:35 PM EDT [facility] UA Glucose Negative Negative mg/dL 04/19/2025 2:35 PM EDT [facility] UA Ketones Negative Negative mg/dL 04/19/2025 2:35 PM EDT [facility] UA Blood Negative Negative 04/19/2025 2:35 PM EDT [facility] UA pH 6.0 5.0 - 8.0 pH 04/19/2025 2:35 PM EDT [facility] UA Protein Negative Negative mg/dL 04/19/2025 2:35 PM EDT [facility] UA Urobilinogen Normal <=1 mg/dL 2:35 PM EDT [facility] UA Bili Negative Negative 04/19/2025 2:35 PM EDT [facility] UA Nitrite Negative Negative 04/19/2025 2:35 PM EDT [facility] UA Leuk Est 1+ (25 Rolando/mcl)(A) Negative 04/19/2025 2:35 PM EDT [facility] UA Spec Grav 1.024 1.001 - 1.035 no units 04/19/2025 2:35 PM EDT [facility] Comment:Reference range alcon d for random specimens [...] 2:35 PM EDT [facility] Urine STRUCTURE OF URINARY TRACT PROPER / Unknown 04/19/2025 2:14 PM EDT 04/19/2025 2:26 PM EDT us Gen Bland MD URINE ORDERABLES Final Result Performing Organization Address [facility]/ZIP Co de Phone Number [facility] [address] [place] [address] , [place] [address] * EXTRA REYES URINE CX (04/19/2025 2:14 PM EDT) Urine STRUCTURE OF URINARY TRACT PROPER / Unknown 04/19/2025 2:14 PM EDT 04/19/2025 2:26 PM EDT us Gen Bland MD MICROBIOLOGY - GENERAL ORDERABL ES Final Result Performing Organization Address [facility] [place] [address] * URINE CULTURE (NO STAIN) (04/19/2025 2:14 PM EDT) Culture Multiple bacterial species isolated from urine consistent with urogenital commensal organisms. 04/21/2025 4:21 PM EDT [facility] Urine STRUCTURE OF URINARY TRACT PROPER / Unknown 04/19/2025 2:14 PM EDT 04/19/2025 2:35 PM EDT us Gen Bland MD MICROBIOLOGY - GENERAL ORDERABL ES Final Result Performing Organization Address City/[facility]/ZIP Co de Phone Number [facility], [address] , [place] [address] * EK EKG 12 LEAD (04/19/2025 12:40 PM EDT) Anatomical Region Laterality Modality Electrocardiogra phy 04/19/2025 12:4 6 PM EDT Impressions 04/19/2025 3:[address] [facility] Test Date: 2025-04-19 Pat Name: JIM URIAS Department: DEPID Room: Gender: Female Route Sales Associate: : 1985 Requested By: [facility] Order Number: [id number] Reading MD: Janice Llanes MD Measurements Intervals [place] Rate: 71 P: 56 GA: 198 QRS: 52 QRSD: 92 T: 55 QT: 374 QTc: 407 Interpretive Statements SINUS RHYTHM Electronically Signed On 04-19-2025 15:51:50 EDT by Janice Llanes MD Narrative Procedure Note Janice Llanes MD - 04/19/[address] [facility] Test Date: 2025-04-19 Pat Name: JIM OTTO ADONAY Department: DEPID Room: Gender: Female Route Sales Associate: : 1985 Requested By: [facility] Order Number: [id number] Reading MD: Janice Llanes MD Measurements Intervals [place] Rate: 71 P: 56 GA: 198 QRS: 52 QRSD: 92 T: 55 QT: 374 QTc: 407 Interpretive Statements SINUS RHYTHM Electronically Signed On 04-19-2025 15:51:50 EDT by Janice Llanes MD Gen Bland MD IMG ECG ORDERABLES Final Result * MM MAMMO DIGITAL RIZWANA SCREEN BILAT (01/26/2024 9:24 AM EDT) Anatomical Region Laterality Modality Breast Bilateral Mammography 01/26/2024 10:0 8 AM EDT Impressions 01/26/2024 10:08 AM EDT Negative ([id number]-[id number]-2) ~ RECOMMENDATION: Routine screening mammogram in 1 year. ~ DISCLAIMER * Any patient with a palpable abnormality, unexplained by breast imaging, should be managed on clinical basis by the attending physician. * Breast imaging has a false negative rate of 15%. * The patient was notified by mail of the results of this examination. *The patient's information was entered into a reminder system with a target due date for the next mammogram, in accordance with the [employer] and the Society of Breast Imaging recommendations. Narrative 01/26/2024 10:08 AM EDT Procedure:MM MAMMO DIGITAL RIZWANA SCREEN BILAT ~ Reason for exam: screening, asymptomatic. Z12.31-Encounter for screening mammogram for malignant neoplasm of yybiih-EJL-24-CM ~ MM MAMMO DIGITAL RIZWANA SCREEN BILAT Bilateral CC and MLO view(s) were taken. Technologist: Star Ramos, RT(R)(M) The breast tissue is heterogeneously dense. This may lower the sensitivity of mammography. Prior study comparison: None. This is a baseline mammogram. No mammographic evidence of malignancy. ~ Procedure Note Bethany Mesa MD - 01/26/2024 Procedure:MM MAMMO DIGITAL RIZWANA SCREEN BILAT ~ Reason for exam: screening, asymptomatic. Z12.31-Encounter for screening mammogram for malignant neoplasm of beczbt-MBA-83-CM ~ MM MAMMO DIGITAL RIZWANA SCREEN BILAT Bilateral CC and MLO view(s) were taken. Technologist: Star Ramos, RT(R)(M) The breast tissue is heterogeneously dense. This may lower thesensitivity of mammography. Prior study comparison: None. This is a baseline mammogram. No mammographic evidence of malignancy. ~ IMPRESSION: Negative (MWG-Imeqzwqj-1) ~ RECOMMENDATION: Routine screening mammogram in 1 year. ~ DISCLAIMER * Any patient with a palpable abnormality, unexplained by breast imaging, should be managed on clinical basis by the attending physician. * Breast imaging has a false negative rate of 15%. * The patient was notified by mail of the results of this examination. *The patient's information was entered into a reminder system with atarget due date for the next mammogram, in accordance with the [employer] and the Society of Breast Imaging recommendations. Avemarck Díaz MD IMG MAMMOGRAPHY O RDERABLES Final Result * FUR TRAPPER CYTOLOGY REQUEST (PAP ONLY) (01/14/2024 10:05 AM EDT) CASE REPORT Gynecologic Cytology Report Case: [id number] Authorizing Provider: Ave Díaz Collected: 01/14/2024 1005 MD Sandie Ordering Location: [facility] Received: 01/14/2024 1005 First Screen: Nissa Borges CT Rescreen: Junie Arevalo CT Specimen: LIQUID-BASED PAP - CERVICAL/ENDOCERV ICAL, Cervix, Endocervical 01/20/2024 12:38 PM EDT [facility] PAP FINAL DIAGNOSIS Negative for intraepithelial lesion or malignancy 01/20/2024 12:38 PM EDT [facility] at 1238 EDT MICROSCOPIC DESCRIPTION Microscopic examination is performed and the findings corroborate the diagnosis. 01/20/2024 12:38 PM EDT [facility] PAP SMEAR ADEQUACY Satisfactory for evaluation 01/20/2024 12:38 PM EDT [facility] ENDOCERVICAL T-ZONE Transformation zone present 01/20/2024 12:38 PM EDT [facility] EMBEDDED IMAGES 12:38 PM EDT [facility] PAP DISCLAIMER The Pap Smear is a screening test that aids in the detection of cervical cancer and cancer precursors. Both false positive and false negative results can occur. The test should be used at regular intervals, and positive results should be confirmed before definitive therapy. Processed using the ThinPrep Crane Engineer Automated cytology screening device ([employer]). 01/20/2024 12:38 PM EDT [facility] Thin Prep ENDOCERVICAL STRUCTURE / Unknown 01/14/2024 10:05 AM EDT 01/14/2024 10:[address] Díaz MD CYTOLOGY ORDERABL ES Final Result [facility] [address] [place] [address] from Last 3 Months or Most Recently Relevant to Health Maintenance Insurance [employer] [facility] Member Subscriber Plan / Payer (Ef fective 2018-Present) Name:Dion AdonayAmey Rishi Relation to Subscriber:Self Name:sariahrupa Jim Urias Payer ID:[id number] (NA) Type:Not on file Address: [place] [phone] Care Teams Head Pastry Chef Relationship Specialty Start Date End Date Colt Man MD PCP - General Family Medicine 01/26/12
--- OUTSIDE RECORDS SUMMARY | 2025-05-08 11:55 | XMS_ITS | Encounter Summary ---
Author Organization [facility] Health Address [address] [place] [address] Care Team Providers Care Patent Solicitor Name Role Phone Unavailable Primary Care Provider Unavailabl e Prior Encounters Date Type Department Care Team Description 02/20/2025 Orders Only [facility] [address], [place] [address] Stanley Ash DDS 01/09/2025 2:00 PM EDT Office Visit [facility] [address], [place] [address] Stanley Ash DDS 01/06/2025 1:00 PM EDT Office Visit [facility] [address], [place] [address] Stanley Ash DDS Encounter for dental examination and cleaning without abnormal findings (Primary Dx) Last Filed Vital Signs Vital Sign Reading Time Taken Comments Blood Pressure 93/66 01/06/2025 1:44 PM EDT Pulse 83 01/06/2025 1:44 PM EDT Temperature - - Respiratory Rate - - Oxygen Saturation - - Inhaled Oxygen Concentration - - Weight - - Height - - Body Mass Index - - Plan of Treatment Not on file Procedures Procedure Name Priority Date/Time Associated Diagnosis Comments 19 EXTRACTION, ERUPTED TOOTH REQUIRING REMOVAL OF BONE AND/OR SECTIONING OF TOOTH Routine 01/09/2025 2:00 PM EDT 18 EXTRACTION, ERUPTED TOOTH REQUIRING REMOVAL OF BONE AND/OR SECTIONING OF TOOTH Routine 01/09/2025 2:00 PM EDT INTRAORAL PHOTO Routine 01/06/2025 1:00 PM EDT INTRAORAL PHOTO Routine 01/06/2025 1:00 PM EDT COMPREHENSIVE ORAL EVALUATION - NEW OR ESTABLISHED PATIENT Routine 01/06/2025 1:00 PM EDT Encounter for dental examination and cleaning without abnormal findings WHAT JOB TITLES MEAN CBCT Routine 01/06/2025 1:00 PM EDT INTRAORAL PHOTO Routine 01/06/2025 1:00 PM EDT INTRAORAL PHOTO Routine 01/06/2025 1:00 PM EDT INTRAORAL - COMPREHENSIVE SERIES OF RADIOGRAPHIC IMAGES Routine 01/06/2025 1:00 PM EDT 31 O COMPOSITE FILLING Routine 5 12:00 AM EDT 30 O COMPOSITE FILLING Routine 5 12:00 AM EDT 13 O COMPOSITE FILLING Routine 5 12:00 AM EDT 14 O COMPOSITE FILLING Routine 5 12:00 AM EDT 19 O COMPOSITE FILLING Routine 5 12:00 AM EDT 18 O COMPOSITE FILLING Routine 5 12:00 AM EDT Visit Diagnoses Diagnosis Start Date Encounter for dental examination and cleaning without abnormal findings 01/06/2025 Insurance [facility] [employer]
[2025-05-08 12:21] LABS: Hematocrit 37.4 % (37.0-47.0); Hemoglobin 11.9 g/dL (12.2-16.2); Immature Granulocytes % 0.3 %; Mean Corpuscular HGB Conc 31.8 g/dL (31.8-35.4); Mean Corpuscular Hemoglobin 30.2 pg (27.0-31.2); Mean Corpuscular Volume 94.9 fl (81-99); Nucleated Red Blood Cells % 0 %; Platelet Count 255 K/mm3 (142-424); Red Blood Count 3.94 M/mm3 (4.20-5.40); Red Cell Distribution Width-SD 43.3 fL; White Blood Count 7.8 K/mm3 (4.8-10.8)
[2025-05-08 12:53] LABS: Albumin Level 4.3 g/dl (3.5-5.0); Chloride 106 mmol/L (98-107); Potassium 4.1 mmoL/L (3.5-5.1); Sodium 137 mmol/L (136-145)
[2025-05-08 12:55] LABS: Alanine Aminotransferase 15 U/L (12-78); Blood Urea Nitrogen 13 mg/dl (7-17); Creatinine,Serum 0.90 mg/dl (0.52-1.04); Estimated Glomerular Filt Rate 69 ml/min (>60); GFR (African American) 83 ML/MIN (>60)
[2025-05-08 12:56] LABS: Albumin/Globulin Ratio 1.7 (1.1-1.8); Alkaline Phosphatase 57 U/L (38-126); Anion Gap 11.1 mEq/L (5-15); Aspartate Amino Transferase 21 U/L (14-36); Bilirubin,Total 0.3 mg/dl (0.2-1.3); Calcium 9.6 mg/dl (8.4-10.2); Carbon Dioxide 24 mmol/L (22.0-30.0); Globulin 2.5 g/dL (1.3-3.2); Glucose 97 mg/dl (74-100); Total Protein,Serum 6.8 g/dl (6.3-8.2)
== END 2025-05-08 23:59 | disposition home or self-care (01) ==
PROVIDERS: PCP Family Medicine; Visit Provider Family Medicine
DX: I49.1 Atrial premature depolarization (principal); I10 Essential (primary) hypertension; R55 Syncope and collapse
CPT/HCPCS: 36415; 80053; 80178; 85025; 93225; 93227